=== PATIENT | female | born 1960 | race African-American/Black ===

== ENCOUNTER 2017-03-29 18:38 | Emergency (ER) | payer BC ==
[2017-03-29 18:44] VITALS: BP 115/90; PULSE 86; TEMP 98.5; BMI 29.8
--- NOTE | 2017-03-29 21:06 | PDOC ---
History of Present Illness - General History Source: Patient Exam Limitations: No Limitations - History of Present Illness Initial Comments: 03/29/17 21:18 The patient is a 57 year old female with a significant past medical history of throat ca (radiation and chemotherapy) and COPD who presents to the ED with vomiting and dry throat. Patient states that she had a radiation treatment today and shortly after started to feel nauseous. Patient reports 3 episodes of yellow emesis today since 14:00 hour. Patient states that her oncologist prompted her to present to the ED for hydration. She states that her last chemotherapy was last week. She denies any fever or chills. She denies any dysuria, hematuria, urgency or frequency. She denies any abdominal pain. SH - 4 cigarettes a day ALL - NKA PCP - Dr. Frye <Lana Lee - Last Filed: 03/29/17 21:18> <Willem Seaman - Last Filed: 03/29/17 23:22> - General Chief Complaint: Nausea/Vomiting Stated Complaint: THROAT CA/DEHYDRATION Time Seen by Provider: 03/29/17 21:04 Past History <Lana Lee - Last Filed: 03/29/17 21:18> - Past Medical History Asthma: Yes Cancer: Yes (THROAT) COPD: Yes HTN: Yes - Psycho/Social/Smoking Cessation Hx Anxiety: No Suicidal Ideation: No Smoking Status: Yes Smoking History: Current every day smoker Have you smoked in the past 12 months: Yes Number of Cigarettes Smoked Daily: 5 Information on smoking cessation initiated: Yes 'Breaking Loose' booklet given: 03/29/17 Hx Alcohol Use: No Drug/Substance Use Hx: No <Willem Seaman - Last Filed: 03/29/17 23:22> - Past Medical History Allergies/Adverse Reactions: Allergies Allergy/AdvReac Type Severity Reaction Status Date / Time No Known Allergies Allergy Verified 03/29/17 18:39 Home Medications: Ambulatory Orders Albuterol 0.083% Nebulizer Stephanie [Ventolin 0.083% Nebulizer Soln -] 1 neb NEB Q6H PRN #1 vial 12/04/15 Albuterol Sulfate Inhaler - [Ventolin Hfa Inhaler -] 1 - 2 inh PO QID PRN #1 inhaler 12/04/15 Methylprednisolone [Medrol Dose [place]] 4 mg PO ASDIR #21 tablet 04/21/16 Review of Systems - Review of Systems Able to Perform ROS?: Yes Comments:: 03/29/17 21:19 CONSTITUTIONAL: No fever, no chills, no fatigue EYES: No visual changes ENT: +dry throat. No ear pain, no sore throat CARDIOVASCULAR: No chest pain, no palpitations RESPIRATORY: No cough, no SOB GI: +nausea, vomiting. No abdominal pain, no constipation, no diarrhea GENITOURINARY: No dysuria, no frequency, no hematuria MUSKULOSKELETAL: No backpain, no joint pain, no myalgias SKIN: No rash NEURO: No headache <Lana Lee - Last Filed: 03/29/17 21:18> *Physical Exam - Vital Signs Last Vital Signs Temp Pulse Resp BP Pulse Ox 98.5 F 86 18 115/90 100 03/29/17 18:41 03/29/17 18:41 03/29/17 18:41 03/29/17 18:41 03/29/17 18:41 - Physical Exam Comments: 03/29/17 21:22 CONSTITUTIONAL: Well-appearing; well-nourished; in no apparent distress HEAD: Normocephalic; atraumatic EYES: PERRL; EOM intact ENMT: (+) erythematous oropharynx, dry mucous membranes. External appears normal ; NECK: Supple; nontender; no cervical lymphadenopathy CARD: Normal S1, S2; no murmurs, rubs, or gallops RESP: Normal chest excursion with respiration; breath sounds clear and equal bilaterally; no wheezes, rhonchi, or rales ABD: Soft, non-distended; non-tender; no palpable organomegaly, no palpable hernias EXT: Normal ROM in all four extremities; non-tender to palpation; distal pulses intact SKIN: Warm, dry, no rash NEURO: No focal neurological deficiencies. <Lana Lee - Last Filed: 03/29/17 21:18> - Vital Signs Last Vital Signs Temp Pulse Resp BP Pulse Ox 98.5 F 86 18 115/90 100 03/29/17 18:41 03/29/17 18:41 03/29/17 18:41 03/29/17 18:41 03/29/17 18:41 <Willem Seaman - Last Filed: 03/29/17 23:22> ED Treatment Course - LABORATORY CBC & Chemistry Diagram: 03/29/17 22:02 03/29/17 22:02 <Willem Seaman - Last Filed: 03/29/17 23:22> Medical Decision Making - Medical Decision Making 03/29/17 21:36 Patient is well-appearing 57-year-old female with history of throat CA, currently undergoing radiation and chemotherapy who presents with several episodes of nonbloody nonbilious bilious vomiting and generalized weakness. Patient is afebrile and hemodynamically stable. Clinically patient appears mildly dehydrated. Abdomen is soft and nontender without evidence of obstruction. Will hydrate, we'll administer H2 blockers and antiemetics. Will discharge patient tolerates by mouth. 03/29/17 23:21 Patient awake and alert, resting currently, tolerates by mouth at this time. CBC shows leukopenia likely chemotherapy-induced. CMP is within normal limit. Patient is afebrile and I do not suspect neutropenic sepsis at this time. Will discharge. <Willem Seaman - Last Filed: 03/29/17 23:22> *DC/Admit/Observation/Transfer - Attestations Scribe Attestion: 03/29/17 21:21 Documentation prepared by DORIE Markham, acting as medical appointment scheduler for Willem Seaman MD. <Lana Lee - Last Filed: 03/29/17 21:18> - Attestations Physician Attestion: 03/29/17 21:36 The documentation was prepared by the scribe under my direct supervision. I have reviewed the documentation which correctly represents the findings, medical decision-making and critical action taken by me. <Willem Seaman - Last Filed: 03/29/17 23:22> Diagnosis at time of Disposition: Dehydration Leukopenia Qualifiers: Leukopenia type: unspecified Qualified Code(s): D72.819 - Decreased white blood cell count, unspecified - Discharge Dispostion Disposition: HOME Condition at time of disposition: Stable - Referrals Referrals: Selvin Frye MD [Primary Care Provider] - - Patient Instructions Printed Discharge Instructions: DI for Nausea -- Adult, DI for Vomiting -- Adult, DI for Dehydration -- Adult
[2017-03-29] MEDS ORDERED: SODIUM CHLORIDE 1,000 ML IV STA (21:16)
[2017-03-29] MEDS ORDERED: ONDANSETRON 4 MG/2 ML VIAL IVPB ONE (21:17)
[2017-03-29] MEDS ORDERED: FAMOTIDINE 20 MG/50 ML IVPB 50 ML IVPB ONE ×2 (21:17→21:55)
[2017-03-29] MEDS ORDERED: ONDANSETRON 4 MG/2 ML VIAL ONE (21:55)
[2017-03-29 22:51] LABS: BASOPHIL 0.5 % (0-2.0); EOSINOPHIL 3.4 % (0-4.5); MCH 32.9 pg (25.7-33.7); MEAN CELL VOLUME 96.8 fl (80-96); MEAN PLT VOLUME 7.2 fl (7.5-11.1); NEUTROPHILS 73.1 % (42.8-82.8); PLATELET COUNT 289 K/MM3 (134-434); RDW 15.2 % (11.6-15.6); WHITE BLOOD COUNT 2.3 K/mm3 (4.0-10.0)
[2017-03-29 23:12] LABS: ALBUMIN 3.6 g/dl (3.4-5.0); ANION GAP 7 (8-16); BILIRUBIN,TOTAL 0.5 mg/dL (0.2-1.0); CO2 32 mmol/L (21-32); CREATININE 0.6 mg/dL (0.55-1.02); GLUCOSE,RANDOM 90 mg/dL (74-106); SGOT/AST 33 U/L (15-37); SGPT/ALT 37 U/L (12-78); TOT PROT 7.1 g/dl (6.4-8.2)
[2017-03-29 23:13] LABS: ALK PHOS 121 U/L (45-117)
== END 2017-03-29 23:42 | disposition home or self-care (01) ==
LOC: JER 18:38
PROC: 3E033NZ Introduction of Analgesics, Hypnotics, Sedatives into Peripheral Vein, Percutaneous Approach (ICD-10-PCS; principal; 2017-03-29)
DX: E86.0 Dehydration (principal); D72.819 Decreased white blood cell count, unspecified; I10 Essential (primary) hypertension; J45.909 Unspecified asthma, uncomplicated; J44.9 Chronic obstructive pulmonary disease, unspecified; F17.210 Nicotine dependence, cigarettes, uncomplicated; Z92.3 Personal history of irradiation
CPT/HCPCS: 36415; 80053; 85025; 99282-25